=== PATIENT | female | born 1955 | race American Indian/Alaskan Native ===

== ENCOUNTER 2018-09-08 23:46 | Emergency (ER) | payer SELFPAY ==
[2018-09-08 23:56] VITALS: BP 151/88
[2018-09-09] MEDS ORDERED: NACL 0.9% 1000 ML 1,000 ML IV ONE (00:42)
[2018-09-09] MEDS ORDERED: ZOFRAN ODT ONE (00:52)
[2018-09-09] MEDS ORDERED: DILAUDID ONE (00:52)
[2018-09-09] MEDS ORDERED: ZOFRAN ODT PO ONE (00:59)
[2018-09-09] MEDS ORDERED: DILAUDID IM ONE (01:00)
[2018-09-09 01:06] LABS: Basophils # (Auto) 0.1 K/mm3 (0.0-0.1); Basophils % (Auto) 0.8 % (0.0-1.8); Eosinophils # (Auto) 0.1 K/mm3 (0.0-0.4); Hematocrit 38.4 % (30.3-42.9); Hemoglobin 13.6 gm/dl (10.1-14.3); Lymphocytes # (Auto) 1.6 K/mm3 (1.2-5.4); Mean Corpuscular HGB Conc 35 % (30-34); Mean Corpuscular Volume 81 fl (79-97); Monocytes # (Auto) 0.7 K/mm3 (0.0-0.8); Monocytes % (Auto) 7.4 % (0.0-7.3); Platelet Count 247 K/mm3 (140-440); Red Blood Count 4.72 M/mm3 (3.65-5.03)
--- NOTE | 2018-09-09 01:41 | Cat Scan Report ---
FINAL REPORT EXAM: CT ABDOMEN PELVIS WO CON HISTORY: R sided abd pain w/vomiting TECHNIQUE: Routine axial imaging was obtained of the abdomen and pelvis without oral or IV contrast. Sagittal and coronal reconstructions were reviewed. FINDINGS: The lung bases are clear. Pleural fluid is not seen. The gallbladder has been removed. The liver and biliary tree appear normal. The pancreas, spleen both appear normal. There is a low-density 14.5 mm low-density left adrenal nodule. The right adrenal gla nd appears normal. The kidneys reveal benign cortical cysts bilaterally measuring up to 3.5 cm in cheng meter. There is no evidence of hydronephrosis. The bowel loops are normal caliber. There are multiple uncomplicated colonic diverticula. The appendix appears normal. There is no evidence of free fluid o r adenopathy. In the pelvis the uterus and bladder appear normal. The skeletal structures reveal arth ritic changes lower lumbar spine. IMPRESSION: Cholecystectomy. No acute process in the abdomen and pelvis Normal appendix. Uncomplicated colonic diverticulosis. Benign cortical cysts in both kidneys. No evidence of hydronephrosis. 14.5 mm low-density left adrenal nodule most likely representing an incidental adenoma. Degenerative arthritic changes lumbar spine.
[2018-09-09 01:43] LABS: Alanine Aminotransferase 21 units/L (7-56); Albumin 4.4 g/dL (3.9-5); BUN/Creatinine Ratio 19; Blood Urea Nitrogen 19 mg/dL (7-17); Calcium 9.7 mg/dL (8.4-10.2); Hemolysis Index 21
[2018-09-09 01:59] LABS: Bacteria,Urine 2+ /HPF (Negative); Bilirubin,Urine NEG (Negative); Blood,Urine NEG (Negative); Color,Urine Yellow (Yellow); Hyaline Casts,Urine 1 /LPF; Mucus,Urine FEW /HPF; Protein,Urine <15 mg/dL mg/dL (Negative); WBC,Urine < 1.0 /HPF (0.0-6.0)
== END 2018-09-09 04:47 | disposition left against medical advice (07) ==
LOC: ED 23:46
DX: R11.10 Vomiting, unspecified (principal); Z53.21 Procedure and treatment not carried out due to patient leaving prior to being seen by health care provider
CPT/HCPCS: 36415; 74176; 80053; 81001; 85025; J1170; Q0162